=== PATIENT | female | born 1960 | race African-American/Black ===

== ENCOUNTER 2023-05-06 12:47 | Emergency (ER) | payer SELFPAY ==
[~2023-05-06] VITALS: Ht 170.2 cm; Wt 75.4 kg
[2023-05-06 12:48] VITALS: TEMP 97.1
[2023-05-06] MEDS ORDERED: NORCO, ANEXSIA 5/325MG TABLET (HYDROcodone/ACETAMINOPHEN) PO ONE (17:10)
[2023-05-06 17:17] VITALS: BP 158/80; O2SAT 99
[2023-05-06] MEDS ORDERED: HYDR-3713 PO (17:22)
[2023-05-06] MEDS ORDERED: ROLLMIS8 XX (17:27)
== END 2023-05-06 17:40 | disposition home or self-care (01) ==
LOC: M ED 12:47
DX: S82.851A Displaced trimalleolar fracture of right lower leg, initial encounter for closed fracture (principal); W10.8XXA Fall (on) (from) other stairs and steps, initial encounter; Y92.89 Other specified places as the place of occurrence of the external cause; Y93.89 Activity, other specified; I10 Essential (primary) hypertension

== ENCOUNTER 2023-05-09 13:25 | Emergency (ER) | payer SELFPAY ==
[~2023-05-09] VITALS: Ht 162.6 cm; Wt 75.0 kg
[~2023-05-09 13:25] MED LIST: HYDR-3713 PO; ROLLMIS8 XX
[2023-05-09] MEDS ORDERED: TELM1TAB33 PO ×2 (13:38→15:51)
[2023-05-09 14:42] LABS: BASO % 0.7 % (0.0-1.0); EOS % 0.7 % (0.0-3.0); HEMATOCRIT 35.1 % (36.0-47.0); HEMOGLOBIN 11.8 g/dl (12.0-15.5); MEAN CORPUSCULAR HEMOGLOBIN 29.2 pg (27.0-33.0); MEAN CORPUSCULAR HGB CONC 33.6 g/dl (32.0-36.5); MEAN CORPUSCULAR VOLUME 86.9 fl (80.0-96.0); MONO # 0.7 10^3/uL (0.0-0.8); MONO % 11.7 % (2.0-8.0); NEUTROPHILS # 2.9 10^3/uL (1.5-8.5); NEUTROPHILS % 50.7 % (36.0-66.0); PLATELET COUNT, AUTOMATED 192 10^3/uL (150-450); RED BLOOD COUNT 4.04 10^6/uL (4.00-5.40); WHITE BLOOD COUNT 5.7 10^3/uL (4.0-10.0)
[2023-05-09 14:57] LABS: INR 1.05; PROTHROMBIN TIME 13.9 SECONDS (12.5-14.5)
[2023-05-09 15:00] LABS: LIPASE 29 U/L (12-53)
[2023-05-09 15:03] LABS: ALBUMIN 3.4 G/DL (3.2-5.2); ALKALINE PHOSPHATASE 79 U/L (46-116); ALT/SGPT 29 U/L (7.0-40); AST/SGOT 26 U/L (<34); BILIRUBIN,DIRECT 0.2 MG/DL (<0.4); BILIRUBIN,TOTAL 0.6 MG/DL (0.3-1.2); BLOOD UREA NITROGEN 15 MG/DL (9-23); CALCIUM LEVEL 9.7 MG/DL (8.3-10.6); CARBON DIOXIDE LEVEL 29 MMOL/L (20-31); CHLORIDE LEVEL 103 MMOL/L (98-107); CK-MB VALUE MASS < 1.0 NG/ML (<3.6); CPK CREATINE PHOSPHOKINASE 71 U/L (34-145); CREATININE FOR GFR 0.91 MG/DL (0.55-1.30); GLOMERULAR FILTRATION RATE > 60.0 (>45); GLUCOSE, FASTING 101 MG/DL (74-106); POTASSIUM SERUM 3.9 MMOL/L (3.5-5.1); SODIUM LEVEL 136 MMOL/L (136-145); TOTAL PROTEIN 7.5 G/DL (5.7-8.2)
[2023-05-09 15:53] VITALS: BP 134/81; TEMP 99.9; O2SAT 98
[2023-05-10] MEDS ORDERED: HYDR-3713 PO (11:40)
== END 2023-05-09 16:03 | disposition home or self-care (01) ==
LOC: M ED 13:25
DX: I10 Essential (primary) hypertension (principal); R07.9 Chest pain, unspecified

== ENCOUNTER 2023-05-15 09:37 | Day surgery (SDC) | payer SELFPAY ==
[~2023-05-15] VITALS: Ht 162.6 cm; Wt 74.8 kg
[~2023-05-15 09:37] MED LIST changes: +TELM1TAB33 PO
[2023-05-15] MEDS ORDERED: LR 1,000 ML IV SCH ×2 (12:00→15:00)
[2023-05-15] MEDS ORDERED: ceFAZolin SOD 2 GM in IV 1 EA IV ONE (13:20)
[2023-05-15] MEDS ORDERED: ceFAZolin 2 GM/D5W 50 ML IV BAG As Ordered ONE (13:25)
[2023-05-15] MEDS ORDERED: PHENYLephrine 500MCG 5ML (100MCG/ML) SYRINGE As Ordered ONE (13:53)
[2023-05-15] MEDS ORDERED: ACETAMINOPHEN 1000MG 100ML IV BAG As Ordered ONE (13:53)
[2023-05-15] MEDS ORDERED: FAMOTIDINE 20MG/2ML VIAL As Ordered ONE (14:02)
[2023-05-15] MEDS ORDERED: NITROGLYCERIN IN D5W 25MG/250ML (100MCG/ML) As Ordered ONE (14:21)
[2023-05-15] MEDS ORDERED: KETOROLAC 60MG 2ML VIAL As Ordered ONE (14:34)
[2023-05-15] MEDS ORDERED: ONDANSETRON 4MG 2ML VIAL IV PRN ×2 (15:00→17:35)
[2023-05-15] MEDS ORDERED: HYDROMORPHONE HCL 0.5 MG/ 0.5 ML SYRINGE IV PRN (15:00)
[2023-05-15] MEDS ORDERED: oxyCODONE 5MG TAB PO PRN (15:00)
[2023-05-15] MEDS ORDERED: fentaNYL 100 MCG/2 ML INJECTION IV PRN (15:00)
[2023-05-15] MEDS ORDERED: HYDR-3713 PO (15:38)
[2023-05-15] MEDS ORDERED: SENNA 8.6 MG TAB (SENOKOT) PO PRN (17:35)
[2023-05-15] MEDS ORDERED: MORPHINE 4 MG/ML 1ML VIAL IV PRN (17:35)
[2023-05-15] MEDS ORDERED: ACETAMINOPHEN TAB 650MG DOSE (2X325MG) PO PRN (17:35)
[2023-05-15 18:50] VITALS: BP 144/72; TEMP 97.9; O2SAT 96
[2023-05-15] MEDS: DOCUSATE SODIUM 100MG CAPSULE PO SCH (20:22)
[2023-05-15] MEDS: oxyCODONE 5MG TAB PO PRN (20:22)
[2023-05-15 20:51] VITALS: BP 166/94; TEMP 97.3; O2SAT 97
[2023-05-15] MEDS: ceFAZolin SOD 2 GM in IV 1 EA IV SCH (21:59)
[2023-05-15] MEDS: KETOROLAC 30 MG/ML 1ML VIAL IV SCH (21:59)
[2023-05-16 02:27] VITALS: BP 183/91; TEMP 97.7; O2SAT 98
[2023-05-16] MEDS: ceFAZolin SOD 2 GM in IV 1 EA IV SCH (04:47)
[2023-05-16] MEDS: KETOROLAC 30 MG/ML 1ML VIAL IV SCH ×2 (04:48→09:46)
[2023-05-16 05:31] VITALS: BP 146/77; TEMP 98.1; O2SAT 98
[2023-05-16] MEDS: oxyCODONE 5MG TAB PO PRN (09:46)
[2023-05-16] MEDS: DOCUSATE SODIUM 100MG CAPSULE PO SCH (09:46)
[2023-05-16] MEDS ORDERED: IBUPROFEN 600MG TAB PO PRN (22:00)
== END 2023-05-16 12:25 | disposition home or self-care (01) ==
LOC: M SDC 09:37 → M MS5PR 18:35 → M SDC 05-16 12:25
PROVIDERS: ATTEND Orthopaedic Surgery
DX: S82.851A Displaced trimalleolar fracture of right lower leg, initial encounter for closed fracture (principal); X58.XXXA Exposure to other specified factors, initial encounter; Y92.89 Other specified places as the place of occurrence of the external cause; Y93.9 Activity, unspecified; Y99.9 Unspecified external cause status; I10 Essential (primary) hypertension; Z79.899 Other long term (current) drug therapy
CPT/HCPCS: 27822; 76000; 96365; 96366; 96375; 96376; 97116; 97161; 97530; C1713; J0131; J0690; J1885; J2371; S0028

== ENCOUNTER → 2023-05-20 | Outpatient (CLI) | payer SELFPAY | LOC: M SOG 08:19 | PROVIDERS: ATTEND Orthopaedic Surgery | DX: S82.851D Displaced trimalleolar fracture of right lower leg, subsequent encounter for closed fracture with routine healing (principal); Z47.89 Encounter for other orthopedic aftercare; Y99.8 Other external cause status ==

== ENCOUNTER → 2023-06-17 | Outpatient (CLI) | payer SELFPAY | LOC: M SOG 07:52 | PROVIDERS: ATTEND Orthopaedic Surgery | DX: S82.851D Displaced trimalleolar fracture of right lower leg, subsequent encounter for closed fracture with routine healing (principal); M19.071 Primary osteoarthritis, right ankle and foot; M79.89 Other specified soft tissue disorders ==

== ENCOUNTER → 2023-07-29 | Outpatient (CLI) | payer SELFPAY | LOC: M SOG 07:54 | PROVIDERS: ATTEND Orthopaedic Surgery | DX: S82.851D Displaced trimalleolar fracture of right lower leg, subsequent encounter for closed fracture with routine healing (principal) ==